=== PATIENT | male | born 1975 | race Caucasian/White ===

== ENCOUNTER → 2020-06-09 | Outpatient (CLI) | payer BC ==
[2020-06-09 08:24] LABS: HEMOGLOBIN 18.4 gm/dl (14.0-17.5); RED BLOOD COUNT 5.66 M/UL (4.20-5.50); WHITE BLOOD COUNT 8.2 K/UL (4.5-11.0)
[2020-06-09 08:47] LABS: BUN/CREATININE RATIO 13 (0-10)
[2020-06-10 09:12] LABS: TESTOSTERONE, SERUM 1101 ng/dL (264-916)
== END ==
LOC: LAB 07:08
PROVIDERS: Internal Medicine
DX: Z51.81 Encounter for therapeutic drug level monitoring (principal); E29.1 Testicular hypofunction; E10.9 Type 1 diabetes mellitus without complications; E03.9 Hypothyroidism, unspecified; E78.5 Hyperlipidemia, unspecified; Z79.4 Long term (current) use of insulin; Z79.890 Hormone replacement therapy
CPT/HCPCS: 36415; 80053; 80061; 83036; 84403; 84439; 84443; 85027

== ENCOUNTER → 2020-07-09 | Outpatient (CLI) | payer BC ==
[2020-07-10 10:14] LABS: TESTOSTERONE, SERUM 488 ng/dL (264-916)
== END ==
LOC: LAB 07:20
PROVIDERS: Internal Medicine
DX: Z51.81 Encounter for therapeutic drug level monitoring (principal); E29.1 Testicular hypofunction; Z79.890 Hormone replacement therapy
CPT/HCPCS: 36415; 84403

== ENCOUNTER → 2020-09-08 | Outpatient (CLI) | payer BC ==
[2020-09-08 08:22] LABS: BUN/CREATININE RATIO 12 (0-10)
[2020-09-09 11:15] LABS: CREATININE, URINE 38.9 mg/dL (Not Estab.)
[2020-09-13 10:44] LABS: HEMOGLOBIN 18.1 gm/dl (14.0-17.5); RED BLOOD COUNT 5.49 M/UL (4.20-5.50); WHITE BLOOD COUNT 7.4 K/UL (4.5-11.0)
== END ==
LOC: LAB 07:23
PROVIDERS: Internal Medicine
DX: E10.9 Type 1 diabetes mellitus without complications (principal); E03.9 Hypothyroidism, unspecified; Z79.4 Long term (current) use of insulin
CPT/HCPCS: 36415; 80048; 80061; 82043; 82570; 83036; 84439; 84443; 85027

== ENCOUNTER → 2020-09-13 | Outpatient (CLI) | payer BC | LOC: DTC 09:11 | DX: E10.9 Type 1 diabetes mellitus without complications (principal) | CPT/HCPCS: G0108 ==

== ENCOUNTER → 2020-09-30 | Outpatient (CLI) | payer BC ==
[2020-09-30 07:56] LABS: BUN/CREATININE RATIO 18 (0-10)
== END ==
LOC: LAB 06:49
PROVIDERS: Family Medicine
DX: E10.9 Type 1 diabetes mellitus without complications (principal)
CPT/HCPCS: 36415; 80053

== ENCOUNTER → 2020-11-10 | Outpatient (CLI) | payer BC ==
[2020-11-11 08:20] LABS: ALPHA-1-ANTITRYPSIN, SERUM 111 mg/dL (101-187)
[2020-11-11 10:21] LABS: HBSAG SCREEN Negative (Negative); HEP A AB, IGM Negative (Negative); HEP B CORE AB, IGM Negative (Negative); HEP C VIRUS AB <0.1 (0.0-0.9)
[2020-11-11 14:29] LABS: MITOCHONDRIAL (M2) ANTIBODY <20.0 Units (0.0-20.0)
== END ==
LOC: US 07:38
PROVIDERS: Family Medicine
DX: E10.9 Type 1 diabetes mellitus without complications (principal); G47.33 Obstructive sleep apnea (adult) (pediatric); R79.89 Other specified abnormal findings of blood chemistry
CPT/HCPCS: 36415; 76700; 80074; 80076; 82103; 82728; 83540; 83550

== ENCOUNTER → 2020-12-28 | Outpatient (CLI) | payer BC ==
[2020-12-29 08:14] LABS: TESTOSTERONE, SERUM 659 ng/dL (264-916)
== END ==
LOC: LAB 08:46
PROVIDERS: Internal Medicine
DX: R79.89 Other specified abnormal findings of blood chemistry (principal); E10.9 Type 1 diabetes mellitus without complications; E78.5 Hyperlipidemia, unspecified; E03.9 Hypothyroidism, unspecified; E29.1 Testicular hypofunction; Z51.81 Encounter for therapeutic drug level monitoring; Z79.890 Hormone replacement therapy
CPT/HCPCS: 36415; 80053; 80061; 83036; 84403; 84443

== ENCOUNTER → 2021-03-08 | Outpatient (CLI) | payer BC | LOC: DTC 09:19 | DX: Z71.3 Dietary counseling and surveillance (principal); E10.9 Type 1 diabetes mellitus without complications; E78.5 Hyperlipidemia, unspecified; E66.01 Morbid (severe) obesity due to excess calories | CPT/HCPCS: G0108 ==

== ENCOUNTER → 2021-03-28 | Outpatient (CLI) | payer BC ==
[2021-03-28 07:37] LABS: BUN/CREATININE RATIO 11 (0-10)
== END ==
LOC: LAB 06:35
PROVIDERS: Family Medicine
DX: E10.9 Type 1 diabetes mellitus without complications (principal); R94.4 Abnormal results of kidney function studies; R79.89 Other specified abnormal findings of blood chemistry
CPT/HCPCS: 36415; 80053; 83036; 84681

== ENCOUNTER → 2021-06-29 | Outpatient (CLI) | payer BC ==
[2021-06-29 07:20] LABS: HEMOGLOBIN 18.3 gm/dl (14.0-17.5); RED BLOOD COUNT 5.6 M/UL (4.20-5.50); WHITE BLOOD COUNT 7.9 K/UL (4.5-11.0)
[2021-06-30 08:15] LABS: TESTOSTERONE, SERUM 598 ng/dL (264-916)
== END ==
LOC: LAB 06:09
PROVIDERS: Family Medicine
DX: E10.9 Type 1 diabetes mellitus without complications (principal); R79.89 Other specified abnormal findings of blood chemistry; E29.1 Testicular hypofunction; E03.9 Hypothyroidism, unspecified
CPT/HCPCS: 36415; 80053; 80061; 83036; 84153; 84403; 84443; 85027

== ENCOUNTER → 2021-09-21 | Outpatient (CLI) | payer BC ==
[2021-09-22 08:19] LABS: TESTOSTERONE, SERUM 726 ng/dL (264-916)
[2021-09-22 09:19] LABS: VITAMIN D, 25-HYDROXY 52.8 ng/mL (30.0-100.0)
[2021-09-22 10:20] LABS: CREATININE, URINE 152.4 mg/dL (Not Estab.)
== END ==
LOC: LAB 06:10
PROVIDERS: Family Medicine; Internal Medicine
DX: K76.0 Fatty (change of) liver, not elsewhere classified (principal); E10.65 Type 1 diabetes mellitus with hyperglycemia; E03.9 Hypothyroidism, unspecified; E29.1 Testicular hypofunction; R79.89 Other specified abnormal findings of blood chemistry
CPT/HCPCS: 36415; 80053; 82043; 82570; 83036; 84403; 84439; 84443